=== PATIENT | female | born 1965 | race Caucasian/White ===

== ENCOUNTER 2019-03-27 07:22 | Outpatient (CLI) | payer OTHER, SELFPAY ==
--- NOTE | 2019-03-27 14:00 | DI.COMBO_ITS ---
SYMPTOMS/DIAGNOSIS: RIGHT BREAST LUMP/MASS, THICKENING UNDER RIGHT ARM X 6 WEEKS DIAGNOSTIC BILATERAL MAMMOGRAMS AND RIGHT AXILLARY ULTRASOUND: MAMMOGRAMS: Mammograms were interpreted according to the usual protocol including computer analysis with CAD system, tomosynthesis and C view imaging. The patient notes thickening in the right axilla. Comparison is made with mammograms from 2015 through 2018. The breasts are composed of scattered fibroglandular densities, breast density category B. Coarse calcifications are again noted in the central right breast. There are no suspicious masses or suspicious microcalcifications. Normal-appearing lymph nodes are seen in the axilla. No mass or suspicious calcifications are visible in the axilla. RIGHT AXILLARY ULTRASOUND: Both axillae were scanned. The left axilla was scanned for comparison. No cyst, mass or enlarged lymph nodes are identified. No edema is seen. IMPRESSION: Category 1, negative mammogram and right axillary ultrasound. No mass is demonstrated. There is a palpable difference in the right axilla. If there is further concern for a suspicious abnormality, an MRI could be considered. [facility] ASSESSMENT OF FINDINGS: Negative. Category 1. Patient will receive a letter notifying them of these results. BI-RADS category B. There are scattered areas of fibroglandular density.
== END 2019-03-27 07:42 ==
PROVIDERS: PCP Family Medicine; Visit Provider Family Medicine
DX: N63.10 Unspecified lump in the right breast, unspecified quadrant (principal); R59.0 Localized enlarged lymph nodes; R92.1 Mammographic calcification found on diagnostic imaging of breast
CPT/HCPCS: 76642; 77062; 77066; G0279

== ENCOUNTER 2019-05-11 13:22 | Outpatient (REF) | payer OTHER, SELFPAY ==
[2019-05-11 22:55] LABS: Calculated LDL 135 mg/dL; Cholesterol 219 mg/dL (50-200); Glucose 83 mg/dL (70-100); HDL Cholesterol 64 mg/dL (40-60); Triglyceride 102 mg/dL (30-150)
== END 2019-05-11 13:42 ==
LOC: NCHCN 13:22
PROVIDERS: PCP Family Medicine; Visit Provider Internal Medicine
DX: Z00.00 Encounter for general adult medical examination without abnormal findings (principal); E78.5 Hyperlipidemia, unspecified; E66.9 Obesity, unspecified
CPT/HCPCS: 80061; 82947; 83721

== ENCOUNTER 2020-05-13 11:37 | Outpatient (REF) | payer OTHER, SELFPAY ==
[2020-05-13 20:52] LABS: HCT 43.5 % (36.0-46.0); HGB 14.4 g/dL (12.0-15.5); Mean Corp. HGB Concentration 33.1 g/dL (32.0-36.0); Mean Corpuscular Hemoglobin 28.5 pg (27.0-33.0); Mean Platelet Volume 11.2 fL (8.0-11.0); Platelet Count 210 x1000/uL (130-400); RBC 5.06 m/cumm (4.00-5.20); RBC Distribution Width 14.8 % (11.7-14.6); White Blood Cell Count 5.52 k/cumm (4.4-10.8)
[2020-05-13 21:53] LABS: Anion Gap 7.9 mmol/L (3-11); BUN 19 mg/dL (7-18); CO2 28.1 mmol/L (21.0-32.0); CREATININE 0.77 mg/dL (0.55-1.02); Calcium 9.3 mg/dL (8.5-10.1); Chloride 104 mmol/L (98-107); Glucose 87 mg/dL (74-106); NT-proBNP 17 pg/mL (<300); Potassium 4.3 mmol/L (3.5-5.1); Sodium 140 mmol/L (136-145)
== END 2020-05-13 11:57 ==
LOC: NCHCN 11:37
PROVIDERS: PCP Family Medicine; Visit Provider Internal Medicine
DX: Z00.00 Encounter for general adult medical examination without abnormal findings (principal); R07.89 Other chest pain; R06.09 Other forms of dyspnea; E78.5 Hyperlipidemia, unspecified
CPT/HCPCS: 80048; 85027; 83880

== ENCOUNTER 2020-06-02 00:41 | Outpatient (CLI) | payer OTHER, SELFPAY ==
--- NOTE | 2020-06-02 08:00 | ETT_ITS ---
APPROVED REPORT Exam: Exercise Treadmill BMI: 30.72 Baseline Rhythm: Sinus Rhythm Indications: Chest Pain, Dyspnea, SOB on exertion Medical History Medical History: Hyperlipidemia, Smoking-former, , Obesity Cardiac Medications: Rosuvastatin/ Crestor Allergies: No known drug allergies, bandage adhesive Cardiac Risk Factors: Hyperlipidemia, FHX of CAD, SOB Pretest Chest Pain Characteristics: No chest pain Exercise History: Physically active Lung Sounds: Clear to auscultation Heart Sounds: Regular Stress Test Details Test: Exercise stress testing was performed using a Vishal protocol. Rest Stress HR Resting HR Supine: 66 bpm Max Heart Rate (APMHR): 163 bpm Resting HR Standin bpm Target HR (85% APMHR): 138 bpm Max HR Achieved: 162 bpm % of APMHR: 99 Recovery HR: 74 bpm HR response to stress: Normal HR response to stress BP Resting BP Supine: 140/100 mmHg Resting BP Standin/98 mmHg Max BP: 190/98 mmHg Recovery BP: 140/98 mmHg BP response to stress: Abnormal hypertensive response to stress. ECG Resting ECG: Sinus Rhythm Stress ECG: Sinus Tachycardia Maximum ST Deviation: 0 mm Arrhythmia: None Recovery ECG: Sinus Rhythm Recovery Arrhythmia: None Clinical Reason for Termination: Target HR Achieved Stress Symptoms: Dyspnea Exercise duration: 10 min00 sec Highest Stage Reached: Stage 4: 4.2 mph at 16% grade. Exercise capacity: 11.81 METs Functional Capacity: Above average capacity Stress ECG Conclusion 1. The resting electrocardiogram was normal 2. Patient exercised on the Vishal protocol and completed a workload of 11.81 METS and achieved 99% of predicted heart rate for age. The test was stopped due to dyspnea 3. Normal heart rate and blood pressure response to exercise 4. Electrocardiographically negative for myocardial ischemia 5. No significant dysrhythmias 6. Treadmill score is 10 which is low risk, 99% survival at 5 years Critical Notification Critical Value: No
== END 2020-06-02 01:01 ==
PROVIDERS: PCP Family Medicine; Visit Provider Internal Medicine
DX: R07.89 Other chest pain (principal); R06.09 Other forms of dyspnea; E78.5 Hyperlipidemia, unspecified; R06.02 Shortness of breath; Z87.891 Personal history of nicotine dependence; E66.9 Obesity, unspecified
CPT/HCPCS: 93017

== ENCOUNTER 2020-06-03 02:38 | Outpatient (CLI) | payer OTHER, SELFPAY ==
--- NOTE | 2020-06-03 15:43 | DI.MAMMO_ITS ---
EXAM: MG MAMMO SCREENING CLINICAL HISTORY: SCREENING, Z12.31 TECHNIQUE: Mammograms were interpreted according to the usual protocol including computer analysis w [employer] CAD system, tomosynthesis and C-view imaging. COMPARISON: FINDINGS: The breasts are of moderate density with fairly symmetrical distribution of fibroglandular tissue. N o dominant mass or clumped microcalcification is identified in either breast. The current examinatio n is compared with previous examinations including March 2019 and there has been no gross interval turner ge in appearance in comparison with the prior studies. IMPRESSION: No specific evidence of malignancy at this time. Routine screening examinations are suggested at yea rly intervals in this age group according to the ACS ACR guidelines. BI-RADS Category 1 - Negative Breast Density - Category B - Scattered areas of fibroglandular density
== END 2020-06-03 02:58 ==
PROVIDERS: PCP Family Medicine; Visit Provider Internal Medicine
DX: Z12.31 Encounter for screening mammogram for malignant neoplasm of breast (principal); R92.2 Inconclusive mammogram
CPT/HCPCS: 77063; 77067

== ENCOUNTER 2022-05-04 03:14 | Outpatient (CLI) | payer OTHER, SELFPAY ==
[2022-05-04 09:02] LABS: Calculated LDL 155 mg/dL (<100); Cholesterol 253 mg/dL (<200); Glucose 117 mg/dL (74-106); HDL Cholesterol 61 mg/dL (40-60); Triglyceride 187 mg/dL (<150)
== END 2022-05-04 03:15 | disposition home or self-care (01) ==
LOC: LBO 03:14
PROVIDERS: PCP Family Medicine; Visit Provider Internal Medicine
DX: Z00.00 Encounter for general adult medical examination without abnormal findings (principal); E66.9 Obesity, unspecified; E78.5 Hyperlipidemia, unspecified
CPT/HCPCS: 36415; 80061; 82947

== ENCOUNTER → 2022-06-08 00:12 | Outpatient (CLI) | payer OTHER, SELFPAY ==
--- NOTE | 2022-06-08 09:12 | DI.MAMMO_ITS ---
Exam(s) MAMMO SCREENING EXAM: MAMMO SCREENING CLINICAL HISTORY: SCREENING MAMMO FOR BREAST CANCER Z12.31 TECHNIQUE: Bilateral full field digital CC and MLO mammographic images were obtained with 3D tomosyn thesis and utilizing computer aided detection (CAD). COMPARISON: Available for comparison. FINDINGS: Masses/Architectural Distortion: None seen. Microcalcifications: No suspicious pleomorphic-type are seen. Skin Thickening/Nipple Retraction: None. IMPRESSION: 1. No significant interval change with no specific features of malignancy noted. 2. Unless there is more urgent need, screening mammography is recommended, as per [employer] guidelines. BI-RADS Category 1 - Negative Breast Density - Category B - Scattered areas of fibroglandular density Breast density category C or D implies that the patient has dense breast tissue. Dense breast tissue is very common and is not abnormal but dense breast tissue can make it harder to find cancer on a ma mmogram. Also, dense breast tissue may increase their breast cancer risk. This information about the result of the mammogram report was provided to the patient to raise their awareness. Use this report when you speak with the patient about their risks for breast cancer, which includes their family hist ory. At that time, you may recommend for more screening tests (Ultrasound or MRI) as they might be us eful based on their risk. A negative radiographic report should not delay biopsy if a dominant or clinically suspicious mass is present. Up to ten percent of cancers are not identified on mammography. A negative report may reinforce clinical impression. Adenosis and dense breasts may obscure an underlying neoplasm. False positive reports average 6 to 10%. Patient will receive a letter notifying them of these results.
== END ==
PROVIDERS: PCP Family Medicine; Visit Provider Internal Medicine
DX: Z12.31 Encounter for screening mammogram for malignant neoplasm of breast (principal)
CPT/HCPCS: 77063; 77067

== ENCOUNTER 2023-05-13 12:27 | Outpatient (REF) | payer OTHER, SELFPAY ==
[2023-05-13 15:49] LABS: Calculated LDL 260 mg/dL (<100); Cholesterol 367 mg/dL (<200); HDL Cholesterol 60 mg/dL (40-60); Triglyceride 237 mg/dL (<150)
== END 2023-05-13 12:28 | disposition home or self-care (01) ==
LOC: NCHCN 12:27
PROVIDERS: PCP Family Medicine; Visit Provider Internal Medicine
DX: Z00.00 Encounter for general adult medical examination without abnormal findings (principal); E78.5 Hyperlipidemia, unspecified; R20.2 Paresthesia of skin; E66.9 Obesity, unspecified
CPT/HCPCS: 80061

== ENCOUNTER → 2023-06-14 00:21 | Outpatient (CLI) | payer OTHER, SELFPAY ==
--- NOTE | 2023-06-14 | DI.MAMMO_ITS ---
Exam(s) MAMMO SCREENING EXAM: MAMMO SCREENING CLINICAL HISTORY: SCREENING, Z12.31 TECHNIQUE: Mammograms were interpreted according to the usual protocol including computer analysis w [employer] CAD system, tomosynthesis and C-view imaging. COMPARISON: 2013 through 2021 FINDINGS: The breasts are composed of scattered fibroglandular densities, Breast Density category B. No suspicious masses or suspicious microcalcifications are seen. No skin thickening or abnormal axillary lymph nodes are seen. There has been no significant change from prior exams. IMPRESSION: BI-RADS Category 1, Negative mammogram Yearly screening mammography is recommended. Breast Density - Category B, scattered fibroglandular densities. A negative radiographic report should not delay biopsy if a dominant or clinically suspicious mass is present. Up to ten percent of cancers are not identified on mammography. A negative report may reinforce clinical impression. Adenosis and dense breasts may obscure an underlying neoplasm. False positive reports average 6 to 10%. Patient will receive a letter notifying them of these results.
== END ==
PROVIDERS: PCP Family Medicine; Visit Provider Internal Medicine
DX: Z12.31 Encounter for screening mammogram for malignant neoplasm of breast (principal)
CPT/HCPCS: 77063; 77067

== ENCOUNTER 2023-11-15 08:44 | Day surgery (SDC) | payer OTHER, SELFPAY ==
--- NOTE | 2023-11-14 19:46 | W.COLOREPORT ---
Date of service: 11/15/23 Time of Service: 10:28 Colonoscopy Report Date of procedure: 11/15/23 Pre-op diagnosis general: CRC screening Post-op diagnosis procedure note: other (Diverticula/rectal polyp) Surgeon: Yamileth Samuel Anesthesia Type: General:No Airway Estimated blood loss (mL): 1 Pathology: other Complications: None Disposition: same day Prep: Miralax/Dulcolax Retraction Time: 15 Procedure Description: After informed consent was obtained the patient was taken to the procedure room and placed in a left decubitous position. Monitors were applied and a time out was done. The patients name, date of , procedure, allergies to medications and metal in their body was reviewed. The patient was then sedated. Once sedated and comfortable a rectal exam was done. External exam was normal. Internal exam revealed a normal sphincter tone and no palpable masses. The scope was then introduced and retrofelexed. No internal hemorrhoids were identified. The scope was then advanced to the cecum without difficulty. The TI and appendiceal orifice were identified. The prep was BBPS 3 in all segments for a total of 9. The scope was then slowly retracted over 15 minutes back into the rectum. She has very few small scattered diverticula confined in the sigmoid colon with no signs of active bleeding or infection. There is a flat 5 mm polyp in the rectum that is removed with a cold biopsy forcep. All specimen is retrieved and no bleeding is noted. The scope was removed and the patient was woken up and taken back to Same day surgery in stable condition. The patient tolerated the procedure well and there were no immediate complications. Follow up: The patient should follow up in 7-10 years unless they develop changes in bowel habits or other new gastrointestinal complaints.
--- NOTE | 2023-11-14 20:08 | PDOC.DSDIS_ITS ---
Date of service: 11/15/23 Time of Service: 10:30 Discharge Plan Disposition Patient Disposition: Home Condition: Good Discharge Details Reason For Visit: CRC screening Attending Provider: Yamileth Samuel Primary Care Provider: Hugh Kruger Home Meds and New Rx's Prescriptions: Continued cholecalciferol (vitamin D3) 125 mcg (5,000 unit) capsule 125 mcg PO DAILY coenzyme Q10 [Co Q-10] 10 mg capsule 10 mg PO DAILY Probiotic Acidophilus 250 million cell capsule 1,000 mmu cells PO DAILY omega-3 fatty acids 500 mg capsule 500 mg PO DAILY ibuprofen 600 MG tablet 600 mg PO Q6H PRN PRNQty: 30 0RF rosuvastatin [Crestor] 10 MG tablet 10 mg PO HS Discontinued bisacodyl [Dulcolax (bisacodyl)] 5 mg tablet,delayed release (DR/EC) 5 mg PO ONCE Qty: 4 0RF Rx Instructions: Take per colonoscopy instructions provided by ordering providers office polyethylene glycol 3350 17 gram/dose powder 17 g PO ONCE Qty: 238 0RF Rx Instructions: Take per colonoscopy instructions provided by ordering providers office Discharge Instructions Additional Instructions: DSU Colonoscopy Post- Op Instructions Instructions for Everyone who is given Anesthesia: For your safety, please do the following for the next twenty-four (24) hours: *Do Not operate a motor vehicle (car, truck, motorcycle, etc.) *Do Not drink alcoholic beverages or use any recreational drugs for the first 24 hours or while taking pain medications. The medications in your body may have a reaction that can be dangerous. *Do Not make any important decisions or sign any important papers. Findings: very few diverticula small polyp Follow up: My office will send you a letter in 2 to 3 weeks time with the results of the pathology and when we would like you to repeat the colonoscopy, most likely 7 to 10 years time. 1. No lifting over 20 pounds or strenuous activity for the first 24 hours after your procedure. After 24 hours there are no restrictions on your activity but you may feel fatigued for a few days. 2. After you arrive home you may have a light meal and return to your normal diet as you can tolerate it without feeling sick to your stomach. 3. You may have a bloated, gaseous feeling in your belly (abdomen) after a colonoscopy. Passing gas and belching will help. Walking or lying down on your left side with your knees flexed may relieve the discomfort. Call the office at [phone] (Office) or [phone] (Hospital) right away if you notice any of the following: a.Vomiting of blood or ?coffee ground stools?. b.Rectal bleeding 1Tbsp, blood clots or continuous bleeding. c.Severe belly (abdominal) pain. d.A hard distended belly (abdomen) and an inability to pass gas. 4. Please don?t expect to have a normal BM (bowel movement) for 2-3 days after your procedure. 5. If there are questions regarding the findings of your procedure, please contact your doctor 6. If you are unable to contact your doctor with a problem, contact the hospital at [phone]. 7. Continue all your regular medications unless directed otherwise. I understand the above instructions and have no questions. Signature of Patient or Adult Escort Name of Responsible Adult Escort Signature of Nurse Date/Time Activity:: see above Diet:: see above Discharge Orders Discharge Orders: Discharge Order (Routine); Ordered 11/15/23 Ordered By: Yamileth Samuel DS: Diagnosis Discharge Diagnosis (1) Hyperlipidemia: (2) Screening for malignant neoplasm of colon performed: Status: Acute Asessment and Plan: The patient is seen and examined after their colonoscopy.? The patient has been able to pass gas.? They are not having abdominal pain.? They have been able to tolerate liquids and a snack.? They do not have any nausea or vomiting.? They are not having any chest pain or shortness of breath.??? They are not having any rectal bleeding. Their vital signs have been stable-see nursing notes. We discussed findings during their colonoscopy, and any biopsies that were done/polyps that were removed. The patient will be sent a letter with any biopsy results, and when to repeat the colonoscopy.-see discharge instructions. Patient was given explicit instructions to follow-up regarding colonoscopy-refer to discharge instructions.? We reviewed resumption of medications. Patient verbalized understanding and discharged in stable and satisfactory condition- See nursing notes. (3) Diverticula of colon: Status: Acute
[2023-11-15 08:55] VITALS: BP 114/92; PULSE 88; RESP 16; TEMP 36.2; O2SAT 96
[2023-11-15] MEDS: Lactated Ringers 1,000 ML 80 ML IV (09:27)
--- NOTE | 2023-11-15 09:39 | W.ANESPRE ---
General Info Date of Service Date Performed: 11/15/23 Height: 5 ft 2 in Weight: 76 kg Body Mass Index (BMI): 30.6 Surgical Procedure: Operation Date: 11/15/23 09:50 Proposed Procedure Side Surgeon rosina Samuel, Meds Allergies and Home Medications Allergies Allergy/AdvReac Type Severity Reaction Status Date / Time pseudoephedrine AdvReac Mild SHAKY/WIRED Unverified 11/15/23 09:14 tape AdvReac Mild Skin Rash Uncoded 11/15/23 09:14 Home Medication Medication Instructions Recorded ibuprofen 600 mg tablet 600 mg PO Q6H PRN PRN #30 tabs 02/19/13 rosuvastatin 10 mg tablet (Crestor) 10 mg PO HS 10/30/16 Lactobacillus acidophilus 250 1,000 mmu cells PO DAILY 10/03/23 million cell capsule (Probiotic Acidophilus) coenzyme Q10 10 mg capsule (Co 10 mg PO DAILY 10/03/23 Q-10) omega-3 fatty acids 500 mg capsule 500 mg PO DAILY 10/03/23 cholecalciferol (vitamin D3) 125 125 mcg PO DAILY 10/31/23 mcg (5,000 unit) capsule Current Visit Medications: Current Medications Generic Name Dose Route Start Last Admin Trade Name Freq PRN Reason Stop Dose Admin Ringer's Solution 1,000 mls @ 80 mls/hr 11/15/23 06:00 11/15/23 09:27 IV 11/15/23 23:59 80 mls/hr INFUSION NESTOR Administration IV Miscellaneous Supplies 1 each 11/15/23 06:00 Iv Access IV 11/15/23 23:59 DIRECTED NESTOR Ondansetron HCl 4 mg 11/15/23 02:46 Ondansetron 4 Mg/2 Ml Vial IVP 12/15/23 02:45 Q4H PRN PRN Nausea / Vomiting Sodium Chloride 0 ml 11/15/23 06:00 Normal Saline Flush 10 Ml Syr IV 11/15/23 23:59 PRN PRN Sodium Chloride 0 ml 11/15/23 06:00 Normal Saline 10 Ml Vial IJ 11/15/23 23:59 DIRECTED PRN Sterile Water 0 ml 11/15/23 06:00 Water,Injection,Sterile 10 Ml Vial IJ 11/15/23 23:59 DIRECTED PRN PFSH Active Problems Active Problems: Problem Status Onset Code Screening for malignant neoplasm of colon performed Z12.11 Menorrhagia 02/19/13 N92.0 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 Medical History Medical History uterine fibroids ascus/hpv Obesity Hyperlipidemia Anemia Surgical History Surgical History Hysterectomy, Laproscopic LSH BSO 02/19/13 Tobacco Smoking/Tobacco Use Status: Never Alcohol Alcohol Intake: current Alcohol intake frequency: a few times a month Substance Use Substance use: Never Substance use type: does not use Vital Signs and Lab Results Vital Signs Most Recent Vital Signs in EMR: Most Recent Vital Signs Temp Pulse Resp BP Pulse Ox 36.2 C L 88 16 114/92 H 96 11/15/23 08:55 11/15/23 08:55 11/15/23 08:55 11/15/23 08:55 11/15/23 08:55 Lab Results Blood Type / Crossmatch: No Data to Display Complete Blood Count: No Data to Display Complete Metabolic Panel: No Data to Display Liver Function Panel: No Data to Display Coagulation Panel: No Data to Display Cardiac Panel: No Data to Display Arterial Blood Gas: No Data to Display Venous Blood Gas: No Data to Display Pancreas Panel: No Data to Display Thyroid Panel: No Data to Display Infectious Disease: No Data to Display Blood Cultures: No Data to Display Toxicology Panel: No Data to Display Imaging and Studies Imaging and Studies Study information below may be from another EMR and interpreted by another provider. Please see original notes in EMR for more complete details. Stress Test Summary: 06/02/20: Clinical Reason for Termination: Target HR Achieved Stress Symptoms: Dyspnea Exercise duration: 10 min00 sec Highest Stage Reached: Stage 4: 4.2 mph at 16% grade. Exercise capacity: 11.81 METs Functional Capacity: Above average capacity Stress ECG Conclusion 1. The resting electrocardiogram was normal 2. Patient exercised on the Vishal protocol and completed a workload of 11.81 METS and achieved 99% of predicted heart rate for age. The test was stopped due to dyspnea 3. Normal heart rate and blood pressure response to exercise 4. Electrocardiographically negative for myocardial ischemia 5. No significant dysrhythmias 6. Treadmill score is 10 which is low risk, 99% survival at 5 years Critical Notification Critical Value: No Anesthesia Assessment and Plan Anesthesia History Personal History: No History of Anesthesia Complications Family History: No Family History of Anesthesia Complications Exercise Tolerance Exercise Tolerance: Metabolic Equivalents>4 Pertinent Negatives Pertinent Negatives: No Symptoms of GERD, No Major Cardiovascular Symptoms or Complaints and No Major Pulmonary Symptoms or Complaints Cardiac & Pulmonary Exam Cardiac Exam: Normal S1/S2 Heart Sounds Pulmonary Exam: Clear Bilateral Breath Sounds Implantable Cardiac Device Does patient have a Pacemaker or an ICD?: No Airway Exam Known Difficult Airway: No Mallampati Class: 1 Mouth Opening: Normal (> 3cm) Thyromental Distance: Greater than 3 cm Neck Range of Motion: Full ROM Neck Circumference: Normal Teeth Condition: Normal Dentition ASA Classification ASA Score: ASA 2 Emergency Case?: No NPO Status NPO Status: NPO Clears >2 hours, Solids >8 hours Anesthesia Plan Resuscitation Status: Full Code Anesthesia Technique: General Anesthesia Airway Planned: Natural Airway Monitors Used: Standard Monitors
[2023-11-15 09:42] VITALS: BMI 30.6
--- NOTE | 2023-11-15 10:13 | BOWEL_PTH ---
PATIENT: Joceline Calderon LOC: [facility] U#:[id number] AGE/SX: 58/F ROOM: RE11/15/[address]: Yamileth Samuel : 1965 BED: DIS: 11/15/2023 SPEC #: [id number] RECD: 11/15/23 11:59 STATUS: FAITH REQ #: [id number] JOSEFINA: 11/15/23 10:[address]: Yamileth Samuel DEPT: Surgical Specimen RECD BY: Margaret Carrera ENTERED: 11/15/23 11:59 SP TYPE: Bowel OTHR DR: Hugh Kruger Tissues: 1 - BIOPSY BOWEL Procedures: GROSS AND MICRO LEVEL 4 Comments: [id number]
[2023-11-15 10:25] VITALS: BP 109/94; PULSE 75; RESP 16; TEMP 36.2; O2SAT 95
--- NOTE | 2023-11-15 10:44 | W.ANESPOSTOP ---
Postoperative Evaluation Date, Time and Location Date Performed: 11/15/23 Time Performed: 10:44 Patient Location: Day Surgery Unit Vital Signs Most Recent Imported Vital Signs: Most Recent Vital Signs Temp Pulse Resp BP Pulse Ox 36.2 C L 75 16 109/94 H 95 11/15/23 10:25 11/15/23 10:25 11/15/23 10:25 11/15/23 10:25 11/15/23 10:25 Pain Score Most Recent Pain Score: Most Recent Pain Score Pain Level 3 11/15/23 10:25 Assessment Mental Status: Awake (Alert & Oriented to Patient Baseline) Airway and Respiratory Function: Patent airway with normal (patient baseline) respiratory exam Cardiovascular Function: Hemodynamically Stable Hydration Status: Adequately Hydrated Nausea & Vomiting: No Nausea or Vomiting Pain: Pt. Denies Any Pain Peripheral Nerve Block: Patient did not receive a nerve block
[2023-11-15 11:10] VITALS: BP 130/88; PULSE 77; RESP 16; TEMP 36.1; O2SAT 96
== END 2023-11-15 11:27 | disposition home or self-care (01) ==
LOC: SUR 08:45
PROVIDERS: PCP Family Medicine; Visit Provider Surgery
PROC: 0DJD8ZZ Inspection of Lower Intestinal Tract, Via Natural or Artificial Opening Endoscopic (ICD-10-PCS; CPT 45378; principal; 2023-11-15 09:45)
DX: Z12.11 Encounter for screening for malignant neoplasm of colon; K63.5 Polyp of colon; K57.30 Diverticulosis of large intestine without perforation or abscess without bleeding; Z86.010 Personal history of colon polyps
CPT/HCPCS: 45380; 88305; J2001; J2704

== ENCOUNTER 2024-05-27 22:25 | Outpatient (REF) | payer OTHER, SELFPAY ==
--- NOTE | 2024-05-27 15:30 | PAPFT_PTH ---
PATIENT: Joceline Calderon LOC: [facility] U#:[id number] AGE/SX: 59/F ROOM: RE05/27/[address]: Kim Marie : 1965 BED: DIS: 05/27/2024 SPEC #: [id number] RECD: 05/28/24 12:57 STATUS: FAITH REViky #: [id number] JOSEFINA: 05/27/24 15:[address]: Kim Marie DEPT: [facility] Cytology RECD BY: Margaret Carrera ENTERED: 05/28/24 12:57 SP TYPE: PAPFT OTHR DR: Hugh Kruger Tissues: 1 - CX/ENDOCX FOR PAP SMEARS Procedures: PAP THIN PREP/[facility] Screening HPV DNA PROBE Comments: [id number] (HPV 16 & 18/45)
[2024-05-27 21:22] LABS: ALT 51 U/L (14-59); AST 27 U/L (15-37); Albumin 4.2 g/dL (3.4-5.0); Alkaline Phosphatase 67 U/L (46-116); Anion Gap 9.1 mmol/L (3-11); BUN 19 mg/dL (7-18); Bilirubin, Total 0.32 mg/dL (0.2-1.0); CO2 31.9 mmol/L (21.0-32.0); CREATININE 0.8 mg/dL (0.55-1.02); Calcium 9.6 mg/dL (8.5-10.1); Calculated LDL 150 mg/dL (<100); Chloride 103 mmol/L (98-107); Cholesterol 263 mg/dL (<200); Estimated GFR 83.78 (mL/min/1.73m2); Glucose 77 mg/dL (74-106); HDL Cholesterol 78 mg/dL (40-60); Potassium 4.1 mmol/L (3.5-5.1); Sodium 144 mmol/L (136-145); Total Protein 7.2 g/dL (6.4-8.2); Triglyceride 175 mg/dL (<150)
[2024-05-27 21:26] LABS: Hemoglobin A1C 5.9 % (<5.7)
[2024-05-28 21:13] LABS: Hepatitis C Ab w Rflx HCV PCR Negative (Negative)
[2024-05-28 21:17] LABS: HIV-1/2 Ag & Ab Screen Negative (Negative)
== END 2024-05-27 22:26 | disposition home or self-care (01) ==
LOC: NCHCN 22:25
PROVIDERS: PCP Family Medicine; Visit Provider Family Medicine
DX: Z00.00 Encounter for general adult medical examination without abnormal findings (principal); Z12.4 Encounter for screening for malignant neoplasm of cervix
CPT/HCPCS: 80053; 80061; 86803; 87389; 88142; 83036; 87624

== ENCOUNTER 2024-10-16 10:46 | Outpatient (CLI) | payer OTHER, SELFPAY ==
[2024-10-16 07:56] LABS: Hemoglobin A1C 5.9 % (<5.7)
[2024-10-16 08:07] LABS: ALT 41 U/L (14-59); AST 23 U/L (15-37); Albumin 3.8 g/dL (3.4-5.0); Alkaline Phosphatase 73 U/L (46-116); Anion Gap 6.6 mmol/L (3-11); BUN 22 mg/dL (7-18); Bilirubin, Total 0.29 mg/dL (0.2-1.0); CO2 31.4 mmol/L (21.0-32.0); CREATININE 0.8 mg/dL (0.55-1.02); Calcium 9.3 mg/dL (8.5-10.1); Calculated LDL 160 mg/dL (<100); Chloride 106 mmol/L (98-107); Cholesterol 256 mg/dL (<200); Estimated GFR 83.78 (mL/min/1.73m2); Glucose 100 mg/dL (74-106); HDL Cholesterol 70 mg/dL (40-60); Potassium 4.4 mmol/L (3.5-5.1); Sodium 144 mmol/L (136-145); Total Protein 7.2 g/dL (6.4-8.2); Triglyceride 134 mg/dL (<150)
== END 2024-10-16 10:47 | disposition home or self-care (01) ==
LOC: LBO 10:47
PROVIDERS: PCP Family Medicine; Visit Provider Family Medicine
DX: E78.5 Hyperlipidemia, unspecified (principal); E66.9 Obesity, unspecified
CPT/HCPCS: 36415; 80053; 80061; 83036

== ENCOUNTER 2025-05-31 14:41 | Outpatient (REF) | payer OTHER, SELFPAY ==
[2025-05-31 16:44] LABS: ALT 50 U/L (14-59); AST 27 U/L (15-37); Albumin 4.0 g/dL (3.4-5.0); Alkaline Phosphatase 68 U/L (46-116); Anion Gap 7.8 mmol/L (3-11); BUN 28 mg/dL (7-18); Bilirubin, Total 0.3 mg/dL (0.2-1.0); CO2 29.2 mmol/L (21.0-32.0); Calcium 9.6 mg/dL (8.5-10.1); Calculated LDL 141 mg/dL (<100); Chloride 106 mmol/L (98-107); Cholesterol 234 mg/dL (<200); Estimated GFR 101.42 (mL/min/1.73m2); Glucose 87 mg/dL (74-106); HDL Cholesterol 68 mg/dL (>or=50); Potassium 4.2 mmol/L (3.5-5.1); Sodium 143 mmol/L (136-145); Total Protein 6.8 g/dL (6.4-8.2); Triglyceride 126 mg/dL (<150)
[2025-05-31 17:01] LABS: Hemoglobin A1C 5.8 % (<5.7)
== END 2025-05-31 14:42 | disposition home or self-care (01) ==
LOC: NCHCN 14:41
PROVIDERS: PCP Family Medicine; Visit Provider Family Medicine
DX: E78.5 Hyperlipidemia, unspecified (principal); R73.03 Prediabetes
CPT/HCPCS: 80053; 80061; 83036

== ENCOUNTER 2025-06-25 01:14 | Outpatient (CLI) | payer OTHER, SELFPAY ==
--- NOTE | 2025-06-25 | DI.MAMMO_ITS ---
Exam(s) MAMMO SCREENING EXAM: MAMMO SCREENING CLINICAL HISTORY: SCREENING, Z12.31. TECHNIQUE: Bilateral full field digital CC and MLO mammographic images were obtained with 3D tomosynthesis and utilizing computer aided detection (CAD). COMPARISON: Prior mammograms were reviewed. FINDINGS: There has been no significant change in the appearance and distribution of the fibroglandular tissue. Calcified benign oil cysts in the right breast are again evident. Small benign-appearing nodules in left breast are also unchanged. There are no new spiculated masses nor malignant appearing microcalcification groups. There is no significant architectural distortion nor skin thickening-retraction. IMPRESSION: No radiographic evidence of malignancy. BI-RADS Category 1 - Negative Breast Density - Category B - There are scattered areas of fibroglandular density. Breast density Category C or D implies that the patient has dense breast tissue. Dense breast tissue can make it harder to find cancer on a mammogram. Dense breast tissue is also associated with an increased risk of breast cancer. This information about the result of the mammogram report was provided to the patient to raise their awareness. Use this report when you speak with the patient about their risks for breast cancer, which includes their family history. At that time, you may recommend additional screening tests (Ultrasound or MRI) as these tests may add significant information. A negative radiographic report should not delay biopsy if a dominant or clinically suspicious mass is present. Up to ten percent of cancers are not identified on mammography. A negative report may reinforce clinical impression. Adenosis and dense breasts may obscure an underlying neoplasm. False positive reports average 6 to 10%. Patient will receive a letter notifying them of these results.
== END 2025-06-25 01:34 ==
PROVIDERS: PCP Family Medicine; Visit Provider Family Medicine
DX: Z12.31 Encounter for screening mammogram for malignant neoplasm of breast (principal); R92.323 Mammographic fibroglandular density, bilateral breasts
CPT/HCPCS: 77063; 77067